=== PATIENT | male | born 1980 | race Two or more races ===

== ENCOUNTER 2025-04-16 14:32 | Inpatient (IN) | payer OTHER, SELFPAY ==
[2025-04-16] VITALS (7 sets, daily range): BP systolic 131–141; BP diastolic 64–76; BMI 39.9; BMI 38.8
[2025-04-16 11:56] LABS: INR 1.79; PT 21.0 Sec (11.4-14.6)
[2025-04-16 11:57] LABS: APTT 38.2 Sec (23.4-35.0)
[2025-04-16 12:02] LABS: Ammonia 59 umol/L (9-30)
[2025-04-16 12:03] LABS: ALT (SGPT) 77 U/L (0-50); AST (SGOT) 95 U/L (17-59); Albumin 2.7 g/dl (3.5-5.0); Alkaline Phosphatase 152 U/L (38-126); Blood Urea Nitrogen 14 mg/dl (9-20); Calcium 8.8 mg/dl (8.4-10.2); Carbon Dioxide 23 mmol/L (22-30); Chloride 114 mmol/L (98-107); Estimated Creatinine Clearance > 125 ml/min; Glucose 167 mg/dl (70-99); Potassium 4.2 mmol/L (3.5-5.1); Sodium 138 mmol/L (135-145); Total Protein 6.1 g/dl (6.3-8.2); eGFR > 60.00
[2025-04-16 12:15] LABS: Hematocrit 32.4 % (39.0-52.0); Hemoglobin 11.5 g/dL (13.0-18.0); Mean Corp Hgb Conc. 35.5 g/dL (33.0-37.0); Mean Corpuscular Volume 101.6 fL (80.0-94.0); Nucleated Red Blood Cells % 0 % (-); Platelet Count 65 10^3/uL (130-400); Red Cell Dist. Width 14.2 % (11.5-14.5)
--- NOTE | 2025-04-16 12:56 | ED.GENMED ---
History of Present Illness
General
Chief Complaint: Change in Mental Status
Source: patient and ambulance crew
Exam Limitations: none
Time Seen by Provider: 04/16/25 11:55
Nursing documentation reviewed up to this point in time: agreed with
History of Present Illness
History of Present Illness:
Note:
CHIEF COMPLAINT(S)
Sleepiness leading to family concerns and ambulance call.
HISTORY OF PRESENT ILLNESS
The patient is a 45-year-old male who was brought to the emergency department after his family called an ambulance due to sudden sleepiness observed over the past two to three days. The patient denies any pain but acknowledges that his family was
concerned about his lethargy which led to the emergency call. The patient was otherwise alert and oriented upon evaluation and able to communicate aptly with medical staff. Additionally, he reports no recent significant events that might have
contributed, suggesting an overall sense of well-being at the time of the assessment.
REVIEW OF SYSTEMS
- Neurological: Reports of sudden-onset sleepiness over the past two to three days. No other neurological complaints such as headache, dizziness, or loss of consciousness.
- General: Denies any acute pain; presents with alertness without distress.
PHYSICAL EXAM
General: Alert, no acute distress.
Skin: Warm, dry. jaundice,
Head: Normocephalic, atraumatic.
Neck: Supple, trachea midline.
Eye Ears, nose, mouth and throat: Oral mucosa moist. sclera icteric
Cardiovascular: Normal peripheral perfusion, No edema.
Respiratory: Respirations are non-labored, lungs clear bilaterally.
Gastrointestinal: Abdomen nondistended.
Back: Normal range of motion, Normal alignment.
Musculoskeletal: Normal range of motion, normal strength.
Neurological: Alert and oriented to person, place, time, and situation, no focal neurological deficit observed.
Psychiatric: Cooperative, appropriate mood & affect.
PLAN
- Blood tests to further evaluate underlying causes for sudden sleepiness.
- Monitor the patients condition and vital signs closely.
- Discuss findings and possible follow-up care with the patient and his family.
DIFFERENTIAL DIAGNOSIS
The Differential Diagnosis includes, in no particular order and is not limited to:
1. Sleep apnea
2. Depression-related fatigue
3. Hypothyroidism
4. Chronic fatigue syndrome
5. Medication side effects
6. Metabolic disorders such as diabetes
7. Neurological conditions like narcolepsy
8. Anemia
9. Sleep disorders such as insomnia
10. Acute or chronic infections
CARE-UPDATE
04/16/25 - 13:03
Patient exhibits elevated ammonia levels and INR at 1.79; plan includes administration of lactulose. Hospitalist admission for continued management is arranged. Patient shows no signs of trauma or focal neurological deficits, but reports significant
fatigue.
Disposition:
SUMMARY OF ENCOUNTER
The patient, a 45-year-old male, was admitted to the emergency department due to sudden-onset sleepiness over the past few days, which alarmed his family. Upon evaluation, the patient was alert and denied any pain. After reviewing the patients
elevated ammonia levels and INR, the decision was made to admit him to the hospital for further management. The presumed diagnosis is related to hepatic encephalopathy, likely linked to hepatitis B.
DISPOSITION
Admit to hospitalist service for continued management.
PLAN
- Administer lactulose for management of elevated ammonia levels.
- Admit for further evaluation and management of probable hepatic encephalopathy.
- Monitor his condition and complete a pending CT scan to rule out any other causes for the altered mental status.
INDEPENDENT REVIEW OF LABS AND INTERPRETATION OF TESTS
My independent review indicates elevated ammonia levels and an INR of 1.79, suggestive of hepatic dysfunction.
MEDICAL DECISION MAKING
-Complexity of Data Reviewed: Chronic conditions affecting care, including the patients diagnosis of hepatitis B and suspected hepatic encephalopathy. Differential diagnosis includes: sleep apnea, depression-related fatigue, hypothyroidism, chronic
fatigue syndrome, medication side effects, metabolic disorders such as diabetes, neurological conditions like narcolepsy, anemia, sleep disorders such as insomnia, and acute or chronic infections.
-Data:
Category 1
Lab tests reviewed revealed elevated ammonia levels and increased INR, indicating potential hepatic dysfunction.
Category 3
Discussion of management with the hospitalist, with plans for admission and further in-hospital management.
DIAGNOSIS
Presumed hepatic encephalopathy due to hepatitis B - ICD-10 Code B16.9
Phy Exam
Physical Exam
Physical Exam:
.
Course
Orders/Labs/Results
Orders:
Orders
04/16/25 11:38
Ammonia Urgent
Complete Blood Count/With Diff Urgent
Comprehensive Metabolic Panel Urgent
PT/INR [Prothrombin Time] Urgent
Is patient on Coumadin/Warfarin?: No
Comment: [email or web address]
PTT Urgent
04/16/25 12:55
Lactulose [Duphalac/Chronulac] 20 grams PO NOW STA
04/16/25 12:57
CT Head W/o Iv Contrast Urgent
Comment:
Reason For Exam: fatigue, confusion
Abnormal Lab Results
04/16/25
11:38
WBC 3.8 L 10^3/uL
(4.8-10.8)
RBC 3.19 L 10^6/uL
(4.70-6.10)
Hgb 11.5 L g/dL
(13.0-18.0)
Hct 32.4 L %
(39.0-52.0)
MCV 101.6 H fL
(80.0-94.0)
MCH 36.1 H pg
(27.0-31.0)
Plt Count 65 L 10^3/uL
(130-400)
MPV 11.0 H fL
(7.4-10.4)
PT 21.0 H Sec
(11.4-14.6)
APTT 38.2 H Sec
(23.4-35.0)
Chloride 114 H mmol/L
(98-107)
Glucose 167 H mg/dl
(70-99)
Total Bilirubin 7.5 H mg/dl
(0.2-1.3)
AST 95 H U/L
(17-59)
ALT 77 H U/L
(0-50)
Alkaline Phosphatase 152 H U/L
(38-126)
Ammonia 59 H umol/L
(9-30)
Total Protein 6.1 L g/dl
(6.3-8.2)
Albumin 2.7 L g/dl
(3.5-5.0)
04/16/25 11:38
04/16/25 11:38
Vital Signs
Initial and Last Documented VS:
Initial Vital Signs
BP
133/73
04/16/25 11:36
Last Documented Vital Signs
Temp Pulse Resp BP Pulse Ox
98.5 F 81 16 132/74 98
04/16/25 11:39 04/16/25 12:00 04/16/25 12:04 04/16/25 12:00 04/16/25 12:58
*Pulse Oximetry
SaO2: 98
Oxygen Mode of Delivery: Room air
Patient hypoxic: no
*Critical Care Note
Total Time (30-74mins, 75-104mins- exclusive of procedures): Not Applicable
ED Attending Note
-
Portions of this chart may have been created with voice recognition software.� Occasional wrong word or��sound alike� substitutions may have occurred due to the inherent limitations of voice recognition software.
Discharge Plan
Departure
Patient Disposition: Admit
Date of Disposition: 04/16/25
Time of Disposition: 12:58
Admit to: Telemetry
Presentation/result/management discussed w/ accepting MD/DO: Hospitalist
Condition: Fair
Discharge Problem:
Acute hepatic encephalopathy, Hepatitis B
Interventions
Interventions:
*Risk Screen - Suicide Last Done: 04/16/25 11:44
*General Assessment Last Done: 04/16/25 11:39
*Neglect/Abuse Screening Last Done: 04/16/25 11:44
*ED- Fall Risk Assessment Last Done: 04/16/25 11:39
*ED COVID-19 Vaccine History Last Done: 04/16/25 11:39
ED- Neurological Assessment Last Done: 04/16/25 11:44
ED Swallowing Screen Last Done: 04/16/25 11:46
Discharge Date and Time
Print Language: PUERTO RICAN
--- NOTE | 2025-04-16 13:06 | HPS.HSE ---
Family Physician
-
Family Physician:
Chief Complaint
-
dizzy and confusion
History of Present Illness
45-year-old with past medical history for hepatitis B presented to us with dizziness, fatigue and confused since this morning. As per son, he seemed very confused and was sleeping more than usual. Patient denied any headache. He complained of
dizzy. Patient denied any fever, chills, cough, congestion. Patient denied any chest pain or short of breath. Patient denied abdominal pain, nausea, vomiting or diarrhea. Patient denied dysuria materia. Patient stated chronic lower extremities
edema.
Admitting with hepatic encephalopathy. CT-Pending. Patient received lactulose in the ER.admitting for further managment.
Medical History
Past Medical History
Past Medical History: Reports Other
Additional Past Medical History:
Hepatitis B
Past Surgical History: Reports Other
Additional Past Surgical History:
Cholecystectomy
Social History
Tobacco: Non-smoker
Alcohol: None
Drug: None
Personal:
Living: With Family
Family History
Family History: Not pertinent
Allergies / Home Medications
Allergies reflects when Allergies were last updated in [facility].
Home Medications with original date entered in [facility]
Allergy/Medication List:
Allergies
Allergy/AdvReac Type Severity Reaction Status Date / Time
No Known Allergies Allergy Unverified 04/16/25 13:03
Review of Systems
-
Constitutional: Reports Fatigue
EENT: Reports No Symptoms
Respiratory: Reports No Symptoms
Cardiac: Reports No Symptoms
Abdomen/GI: Reports No Symptoms
: Reports No Symptoms
Musculoskeletal: Reports No Symptoms
Skin: Reports No Symptoms
Neurological: Reports Dizzy and Weakness
Endocrine: Reports No Symptoms
Hematologic/Lymphatic: Reports No Symptoms
Psych: Reports No Symptoms
Physical Exam
Vital Signs
Vital Signs
Temp Pulse Resp BP Pulse Ox
98.5 F 81 16 132/74 98
04/16/25 11:39 04/16/25 12:00 04/16/25 12:04 04/16/25 12:00 04/16/25 12:58
Physical Exam
General: Well Developed, Well Nourished and No Apparent Distress
HEENT: NormoCephalic, Moist mucous membranes and Atraumatic
Respiratory: Clear
Cardiac: S1/S2 and Regular Rhythm; No Murmur or Rub
GI: Soft, Non Tender, Non Distended and Normal Bowel Sounds; No Organomegaly
Rectal: Deferred by Provider
Musculoskeletal: No Clubbing, No Cyanosis and Other (Bilateral lower extremities edema)
Skin: No Rash
Neuro: Nonfocal/grossly intact
Laboratory Results
-
04/16/25 11:38
04/16/25 11:38
Laboratory Results
PT 21.0 Sec (11.4-14.6) H 04/16/25 11:38
INR 1.79 04/16/25 11:38
APTT 38.2 Sec (23.4-35.0) H 04/16/25 11:38
Total Bilirubin 7.5 mg/dl (0.2-1.3) H 04/16/25 11:38
AST 95 U/L (17-59) H 04/16/25 11:38
ALT 77 U/L (0-50) H 04/16/25 11:38
Alkaline Phosphatase 152 U/L (38-126) H 04/16/25 11:38
Data Reviewed
-
Lab Data: Labs Reviewed by me
Impression/Plan
-
#hepatic encephalopathy likely from hepatitis B cirrhosis
-AST 95.ALT 77, ammonia 59
-Patient received a dose of lactulose in the ER
-Lactulose continued
-Lasix continued
-Patient is on Vemlidy as outpatient.
-duplex for LE edema
-CT head pending
-follows nurse first assist as outpatient
#pancytopenia likely from liver disease
-wbc 3.8,hgb 11.5,platelets 65
-ctm
# GERD
- Pantoprazole, famotidine continued
#DVT Prophylaxis
-Lovenox
#CODE status
-full code
--- NOTE | 2025-04-16 13:45 | W.PN.UPDATE ---
Update Note
Progress Note Update
This is an addendum to H&P written by BLOOD DONOR RECRUITER Connie Frank
I saw and examined the patient.
The BLOOD DONOR RECRUITER's note was reviewed and I agree with the note.
Comment:
Mr. Cristhian Beach is a 45 yo man with hx Hepatitis B cirrhosis who presents to the ER with increasing feeling of fatigue, some confusion.
Triage VS: T 98.5, P 81, RR 16, BP 132/74, SpO2 98%
On exam patient is awake, alert. RN helped translate. He has chronic right eye deviation (hx surgery many ears ago). mild asterixic, no focal deficits, no abdominal pain.
LABS: WBC 3.8, Hg 11.5, PLT 65, INR 1.79, Na 138, K+ 4.2, Cl 114, BUN 14, Cr 0.7, Glucose 167, T. Bili 7.5, AST 95, ALT 77, Alk Phos 152
Ammonia level 59
Hepatic Encephalopathy, Mild
-admit to med/surg
-order Lactulose TID, give extra if no BM today
Hepatitis B Cirrhosis
Transaminitis
-patient follows with [facility], will try to obtain records
-BOXCAR WEIGHER Vemlidy
-BOXCAR WEIGHER Propranolol
-BOXCAR WEIGHER Lasix
-will obtain US here, tomorrow AM
LE swelling
-F/U US
-BOXCAR WEIGHER Lasix
GERD - BOXCAR WEIGHER Protonix
Remainder of plan per BLOOD DONOR RECRUITER note
[2025-04-16] MEDS: DUPHALAC/CHRONULAC 20 GRAMS PO ×2 (15:19→20:55)
--- NOTE | 2025-04-16 18:05 | PTCARENOTE ---
received pt from ed. pt ambulated from stretcher to bed x1 assist. Pt VSS and AAOx3. pt oriented to unit. call espitia placed within reach and bed alarm is on. Pt was then transfered from [facility]2 to 420 so that his could stay and help him. pt is
uzbekian speaking. care is ongoing.
[2025-04-17] MEDS: DUPHALAC/CHRONULAC 20 GRAMS PO ×4 (01:00→20:37)
--- NOTE | 2025-04-17 01:30 | PTCARENOTE ---
Nursing to place order from change of shift stating that nursing should TT provider if pt has not had a BM by 1900 so an extra dose of lactulose can be ordered. Pt arrived to unit at 1800, this RN did not assume care of pt until 184. Pt provided
evening dose of lactulose at 2054, with a large loose BM at 2144. Another dose of lactulose given at 0100. Pt continuing to void loose brown stools s/p lactulose admin. DANY Hawley notified, will continue to follow with current bowel regimen, no
further orders.
[2025-04-17 03:30] VITALS: BP 137/78
--- NOTE | 2025-04-17 04:00 | PTCARENOTE ---
Pt making multiple trips to the bathroom to void large amounts of loose brown stools s/p lactulose admin. Pt is also reporting 10/10 headache and vomiting; he attributes the vomiting to the pain. Nothing PRN ordered. DEPORTATION OFFICER Marleen notified, 1x orders of
IV Toradol and IV Zofran ordered and provided to pt. Pt now sleeping.
[2025-04-17] MEDS: TORADOL 15 MG IV (04:27)
[2025-04-17] MEDS: ZOFRAN 4 MG IV (04:27)
[2025-04-17 05:46] VITALS: BMI 38.7
[2025-04-17 07:00] VITALS: BP 152/71
--- NOTE | 2025-04-17 07:07 | W.PN.HOSP.TC ---
Today's Communication/Plan
-
cont lactulose TID
resume home Vemlidy (POM) and Xifaxan
monitor LFTs
GI eval
Assessment / Plan
Assessment / Plan
Physical Exam
General: No acute distress, appears relatively comfortable at this time
HEENT: NormoCephalic, Moist mucous membranes and Atraumatic Scleral Icterus
Respiratory: Clear to auscultation b/l
Cardiac: S1/S2 and Regular Rhythm; No Murmur or Rub
GI: Soft, Non Tender, Non Distended and Normal Bowel Sounds; No Organomegaly
Musculoskeletal: No Clubbing, No Cyanosis, Bilateral lower extremities edema +1
Skin: No Rash, Jaundice present
Neuro: AOx3 conversant coherent, no asterixis
Psych: Calm
45M Chadian speaking semi-fluent Brazilian hx Hep B Cirrhosis on Vemlidy here for hepatic Encephalopathy
#hepatic encephalopathy
#Hx hepatitis B cirrhosis
#LE edema
#Severe bilirubinemia
-Lactulose continued TID (on daily at home)
-home Lasix continued
-home Vemlidy resumed Pt's own med
-Home Xifaxan resumed 550 mg BID
-duplex LE appreciated no DVT
-CT head appreciated no acute abn's
-Abd US appreciated mild splenomegaly, otherwise no signifcant acute abn's
-follows band saw marker as outpatient
-GI eval requested
#pancytopenia likely from liver disease
-ctm
# GERD
- Pantoprazole, famotidine continued
#DVT Prophylaxis
-Lovenox
#CODE status
-full code
Via international language line Chadian, discussed with patient and patient's Janeth
I spent a total of 50 minutes with the patient or on the floor. More than 50% of this time involved counseling and coordination of care.
Anticipated Discharge: 24 - 48 hours
Subjective/Interval History
-
Date of Service: April 17, 2025
Interviewed via international language line production inspector Chadian. Reports general malaise fatigue lethargy. Denies significant pain. AOx3 conversant coherent. Janeth present during evaluation.
Objective Data
-
Labs:
Laboratory Results
04/17/25
06:00
WBC Pending
Hgb Pending
Hct Pending
Plt Count Pending
Sodium Pending
Potassium Pending
Chloride Pending
Carbon Dioxide Pending
BUN Pending
Creatinine Pending
Glucose Pending
Calcium Pending
Total Bilirubin Pending
AST Pending
ALT Pending
Alkaline Phosphatase Pending
Vital Signs:
Vital Signs
Temp Pulse Resp BP Pulse Ox
98.7 F 66 16 137/78 99
04/17/25 03:30 04/17/25 03:30 04/17/25 03:30 04/17/25 03:30 04/17/25 03:30
I&O
04/16/25 04/17/25 04/18/25
06:59 06:59 06:59
Intake Total 240 / 240
Balance 240 / 240
[2025-04-17 08:17] LABS: Hematocrit 28.2 % (39.0-52.0); Hemoglobin 10.1 g/dL (13.0-18.0); Mean Corp Hgb Conc. 35.8 g/dL (33.0-37.0); Mean Corpuscular Volume 101.8 fL (80.0-94.0); Platelet Count 51 10^3/uL (130-400); Red Cell Dist. Width 13.8 % (11.5-14.5)
[2025-04-17 08:27] LABS: Ammonia 28 umol/L (9-30)
[2025-04-17] MEDS: INDERAL LA 60 MG PO (09:18)
[2025-04-17 09:19] LABS: ALT (SGPT) 66 U/L (0-50); AST (SGOT) 77 U/L (17-59); Albumin 2.3 g/dl (3.5-5.0); Alkaline Phosphatase 93 U/L (38-126); Blood Urea Nitrogen 16 mg/dl (9-20); Calcium 8.0 mg/dl (8.4-10.2); Carbon Dioxide 22 mmol/L (22-30); Chloride 116 mmol/L (98-107); Estimated Creatinine Clearance > 125 ml/min; Glucose 133 mg/dl (70-99); Potassium 3.9 mmol/L (3.5-5.1); Sodium 139 mmol/L (135-145); Total Protein 5.3 g/dl (6.3-8.2); eGFR > 60.00
[2025-04-17] MEDS: LASIX 20 MG PO (09:19)
[2025-04-17] MEDS: PROTONIX 40 MG PO (09:19)
[2025-04-17] MEDS: NON-FORMULARY ITEM 25 MG PO (14:18)
[2025-04-17 15:00] VITALS: BP 126/81
--- NOTE | 2025-04-17 16:21 | CM ---
Patient sleeping, seen bedside w/ spouse and son. Initial assessment completed. Son translated for spouse. Patient is a 45-year-old with past medical history for hepatitis B presented to us with dizziness, fatigue and confused.
Patient resides w/ spouse and son in a 2STH, 2 steps to enter from the outside. Patient is independent in all areas, no equipment required. No therapy hx reported.
Address, point of contact and insurance verified
PCP: Rudy Garrett
Pharmacy: [facility]
Plan: Home, no needs anticipated
[2025-04-17] MEDS: XIFAXAN 550 MG PO (20:37)
[2025-04-17 22:52] VITALS: BP 154/89
[2025-04-18 06:00] VITALS: BMI 38.6
[2025-04-18 07:00] VITALS: BP 134/76
[2025-04-18 08:00] LABS: INR 1.90; PT 22.0 Sec (11.4-14.6)
[2025-04-18 08:11] LABS: Hematocrit 29.9 % (39.0-52.0); Hemoglobin 10.7 g/dL (13.0-18.0); Mean Corp Hgb Conc. 35.8 g/dL (33.0-37.0); Mean Corpuscular Volume 101.7 fL (80.0-94.0); Platelet Count 50 10^3/uL (130-400); Red Cell Dist. Width 13.3 % (11.5-14.5)
[2025-04-18 08:22] LABS: ALT (SGPT) 68 U/L (0-50); AST (SGOT) 84 U/L (17-59); Albumin 2.3 g/dl (3.5-5.0); Alkaline Phosphatase 92 U/L (38-126); Blood Urea Nitrogen 16 mg/dl (9-20); Calcium 7.6 mg/dl (8.4-10.2); Carbon Dioxide 24 mmol/L (22-30); Chloride 112 mmol/L (98-107); Estimated Creatinine Clearance > 125 ml/min; Glucose 136 mg/dl (70-99); Magnesium 1.7 mg/dl (1.6-2.3); Potassium 4.0 mmol/L (3.5-5.1); Sodium 137 mmol/L (135-145); Total Protein 5.3 g/dl (6.3-8.2); eGFR > 60.00
[2025-04-18] MEDS: DUPHALAC/CHRONULAC 20 GRAMS PO ×3 (08:39→20:48)
[2025-04-18] MEDS: PROTONIX 40 MG PO (08:41)
[2025-04-18] MEDS: XIFAXAN 550 MG PO ×2 (08:41→20:46)
[2025-04-18] MEDS: LASIX 20 MG PO (08:42)
[2025-04-18] MEDS: INDERAL LA PO (08:43)
[2025-04-18] MEDS: NON-FORMULARY ITEM 25 MG PO (08:43)
--- NOTE | 2025-04-18 09:23 | W.PN.HOSP.TC ---
Today's Communication/Plan
-
see A/P
Assessment / Plan
Assessment / Plan
45M Chinese speaking semi-fluent Japanese hx Hep B Cirrhosis on Vemlidy here for hepatic Encephalopathy
A/P:
# hepatic encephalopathy
# Hx hepatitis B cirrhosis
# LE edema
# Severe bilirubinemia
Lactulose continued TID (on daily at home)
home Lasix continued, extra dose 20 mg IV today as pt states edema not much improved
home Vemlidy resumed Pt's own med
Home Xifaxan resumed 550 mg BID
duplex LE appreciated no DVT
CT head appreciated no acute abn's
Abd US appreciated mild splenomegaly, otherwise no significant acute abn's
follows lead massage therapist as outpatient
GI consulted
# pancytopenia likely from liver disease
Monitor
# GERD
Pantoprazole, famotidine continued
DVT Prophylaxis: use SCD in setting of thrombocytopenia at 50k
CODE status-full code
DW pt with at bedside
total time spent 51 min
Anticipated Discharge: Within 24 hours
Subjective/Interval History
-
Date of Service: April 18, 2025
Objective Data
-
Labs:
Laboratory Results
04/18/25
07:32
WBC 2.8 L
Hgb 10.7 L
Hct 29.9 L
Plt Count 50 L
PT 22.0 H
INR 1.90
Sodium 137
Potassium 4.0
Chloride 112 H
Carbon Dioxide 24
BUN 16
Creatinine 0.6 L
Glucose 136 H
Calcium 7.6 L
Total Bilirubin 7.3 H
AST 84 H
ALT 68 H
Alkaline Phosphatase 92
Vital Signs:
Vital Signs
Temp Pulse Resp BP Pulse Ox
36.5 C 56 18 132/78 100
04/17/25 22:52 04/18/25 08:43 04/17/25 22:52 04/18/25 08:43 04/17/25 22:52
I&O
04/17/25 04/18/25 04/19/25
06:59 06:59 06:59
Intake Total 240 / 240 1919
Balance 240 / 240 1919
Review of Systems
-
History Source: Patient
All other systems: Reviewed and negative
Physical Exam
-
General: Well Developed, Well Nourished, No Apparent Distress, Comfortable and Conversant; Negative Respiratory Distress
HEENT: Normocephalic, Atraumatic, Nose Appears Normal and Ears Appear Normal; Negative Oxygen
Respiratory: Clear to Auscultation and Non Labored Respirations; Negative Accessory Resp Muscle Use
Cardiac: Regular Rhythm and S1/S2
GI: Soft, Nontender, Nondistended and Normal Bowel Sounds
Skin: Warm, Dry and Jaundice
Neuro: Awake, Alert, Oriented and AO x 3
Psych: Calm and Intact Judgement/Insight
Data Reviewed
-
Ultrasound: Report Reviewed by me
Labs: Labs Reviewed by me
[2025-04-18] MEDS: LASIX 20 MG IV (10:23)
--- NOTE | 2025-04-18 13:57 | CON.GI ---
Consultation
-
Date/Time Consultation Requested: 04/18/2025
Date/Time Consultation Performed: 10/19/2024
Performing Provider: Michele Elizalde
Reason for Consultation: HE
Medical History
Chief Complaint / HPI
Chief Complaint: HE
History of Present Illness:
Patient is a 45-year-old male with H/O HBV cirrhosis decompensated by hepatic encephalopathy who p/w confusion and altered mental status. He tells me that he did not take his lactulose for past few days and found himself confused. 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 His confusion worsened and became drowsy. He was given lactulose in the ED which improved his encephalopathy. He is conversant and answers
questions appropriately today with me. He states Dr. Rudy Felix for his liver disease. His home meds include diuretics, lactulose, beta-blockers, rifaximin and tenofovir for his HBV. He does not drink alcohol or smoke cigarettes.
Past Medical History
Past Medical History: GERD and Other (HBV)
Past Surgical History: Cholecystectomy
Social History
Tobacco: Non-Smoker
Alcohol: None
Family History
Family History: Reviewed & Not Pertinent
Allergies / Home Medications
Allergy/AdvReac Type Severity Reaction Status Date / Time
No Known Allergies Allergy Unverified 04/16/25 13:03
�Medication �Instructions �Recorded
famotidine 40 mg tablet 40 mg PO DAILY Gastrointestinal 04/16/25
Issue
furosemide 20 mg tablet 20 mg PO DAILY Fluid 04/16/25
Retention/Swelling
lactulose 10 gram/15 mL oral 30 ml PO DAILY Constipation 04/16/25
solution
pantoprazole 40 mg tablet,delayed 40 mg PO DAILY Gastrointestinal 04/16/25
release (Protonix) Issue
propranolol 60 mg capsule,24 60 mg PO DAILY Blood Pressure 04/16/25
hr,extended release
tenofovir alafenamide 25 mg tablet 25 mg PO DAILY HEP B 04/16/25
(Vemlidy)
rifaximin 550 mg tablet (Xifaxan) 550 mg PO BID 04/17/25
Review of Systems
Vital Signs
Temp Pulse Resp BP Pulse Ox
97.6 F 56 18 132/78 99
04/18/25 07:00 04/18/25 08:43 04/18/25 07:00 04/18/25 08:43 04/18/25 12:35
Physical Exam
Exam
General: Well Developed and Well Nourished
HEENT: Normocephalic, Anicteric and Other (scleral icterus)
Respiratory: Clear
Cardiac: S1/S2 and Regular Rhythm
GI: Soft, Non Tender, Non Distended and Normal Bowel Sounds
Musculoskeletal: Edema
Results
WBC 2.8 10^3/uL (4.8-10.8) L 04/18/25 07:32
Hgb 10.7 g/dL (13.0-18.0) L 04/18/25 07:32
Hct 29.9 % (39.0-52.0) L 04/18/25 07:32
MCV 101.7 fL (80.0-94.0) H 04/18/25 07:32
Plt Count 50 10^3/uL (130-400) L 04/18/25 07:32
Absolute Neuts (auto) 2.1 10^3/uL (1.4-6.5) 04/16/25 11:38
PT 22.0 Sec (11.4-14.6) H 04/18/25 07:32
INR 1.90 04/18/25 07:32
APTT 38.2 Sec (23.4-35.0) H 04/16/25 11:38
Sodium 137 mmol/L (135-145) 04/18/25 07:32
Potassium 4.0 mmol/L (3.5-5.1) 04/18/25 07:32
Chloride 112 mmol/L (98-107) H 04/18/25 07:32
Carbon Dioxide 24 mmol/L (22-30) 04/18/25 07:32
BUN 16 mg/dl (9-20) 04/18/25 07:32
Creatinine 0.6 mg/dL (0.7-1.3) L 04/18/25 07:32
Calcium 7.6 mg/dl (8.4-10.2) L 04/18/25 07:32
Total Bilirubin 7.3 mg/dl (0.2-1.3) H 04/18/25 07:32
AST 84 U/L (17-59) H 04/18/25 07:32
ALT 68 U/L (0-50) H 04/18/25 07:32
Alkaline Phosphatase 92 U/L (38-126) 04/18/25 07:32
Diagnostic Image Results:
Prior GI Procedures:
EGD:
Colonoscopy:
Assessment / Plan
-
45-year-old male with HBV decompensated cirrhosis presenting with hepatic encephalopathy.
Impression / Rec:
1. HE - he presented with confusion and somnolence / lethargy. He was promptly diagnosed with hepatic encephalopathy and was treated with lactulose with good response. His mental status is back to baseline, and there is no asterixis noted during
exam. 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 I informed him that he should not work as a production truck driver
given his risk of hepatic encephalopathy. His bilirubin on admission was 9 improved to 7.5 today. His INR was 1.8 on admission and 1.9 today. I reviewed his most recent blood work from his outside GI. Bilirubin on 03/2025 was 5.5 with alk phos of
130, and AST 104/ALT 79. Bilirubin on 12/2024 was 5 with alk phos of 143, and AST 159/ALT 114. INR was 1.5. Overall his MELD is 21. Unknown if he has undergone consideration for possible liver transplant workup. He does not drink alcohol or
smoke cigarettes. Continue with lactulose 3 times daily and rifaximin. He probably should be on Aldactone in addition to his Lasix. He can follow-up with his dehydrogenation operator head upon discharge.
Total Time Spent with Patient (in minutes): 55
-
-
Thank you for consultation and allowing me to participate in the patient's care. Please call the compliance professional GI physician during the after hours with any questions or concerns.
[2025-04-18 15:00] VITALS: BP 122/64
[2025-04-18 23:22] VITALS: BP 129/67
[2025-04-19 00:44] VITALS: BP 125/64
[2025-04-19 06:00] VITALS: BMI 38.4
[2025-04-19 06:54] LABS: Ammonia 31 umol/L (9-30); INR 1.71; PT 20.3 Sec (11.4-14.6)
[2025-04-19 06:59] LABS: ALT (SGPT) 74 U/L (0-50); AST (SGOT) 96 U/L (17-59); Albumin 2.4 g/dl (3.5-5.0); Alkaline Phosphatase 102 U/L (38-126); Blood Urea Nitrogen 11 mg/dl (9-20); Calcium 7.5 mg/dl (8.4-10.2); Carbon Dioxide 30 mmol/L (22-30); Chloride 107 mmol/L (98-107); Estimated Creatinine Clearance > 125 ml/min; Glucose 139 mg/dl (70-99); Magnesium 1.7 mg/dl (1.6-2.3); Potassium 3.7 mmol/L (3.5-5.1); Sodium 137 mmol/L (135-145); Total Protein 5.6 g/dl (6.3-8.2); eGFR > 60.00
[2025-04-19 07:00] VITALS: BP 128/72
[2025-04-19 07:16] LABS: Hematocrit 32.1 % (39.0-52.0); Hemoglobin 11.5 g/dL (13.0-18.0); Mean Corp Hgb Conc. 35.8 g/dL (33.0-37.0); Mean Corpuscular Volume 101.6 fL (80.0-94.0); Nucleated Red Blood Cells % 0 % (-); Platelet Count 68 10^3/uL (130-400); Red Cell Dist. Width 13.4 % (11.5-14.5)
[2025-04-19] MEDS: DUPHALAC/CHRONULAC 20 GRAMS PO (07:55)
[2025-04-19] MEDS: INDERAL LA PO ×2 (07:56→08:00)
[2025-04-19] MEDS: LASIX 20 MG PO (07:56)
[2025-04-19] MEDS: PROTONIX 40 MG PO (07:57)
[2025-04-19] MEDS: XIFAXAN 550 MG PO (07:57)
[2025-04-19] MEDS: NON-FORMULARY ITEM 25 MG PO (07:57)
--- NOTE | 2025-04-19 09:22 | W.PN.HOSP.TC ---
Addendum entered and electronically signed by Mary Gilbert MD 04/19/25 12:44:
DC time 40 min
Original Note:
Today's Communication/Plan
-
extra IV Lasix today before discharge
discharge planning
Assessment / Plan
Assessment / Plan
45M Romanian speaking semi-fluent Ukrainian hx Hep B Cirrhosis on Vemlidy here for hepatic Encephalopathy
A/P:
# hepatic encephalopathy
# Hx hepatitis B cirrhosis
# LE edema
# Severe bilirubinemia
Lactulose continued TID (on daily at home)
home Lasix continued, s/p extra dose 20 mg IV and another today 04/19 before discharge
home Vemlidy resumed Pt's own med
Home Xifaxan resumed 550 mg BID
Added low dose Aldactone 12.5 daily, further dose adjustment defer to outpt GI
duplex LE appreciated no DVT
CT head appreciated no acute abn's
Abd US appreciated mild splenomegaly, otherwise no significant acute abn's
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
appreciate GI input
# pancytopenia likely from liver disease
Monitor
# GERD
Pantoprazole, famotidine continued
DVT Prophylaxis: use SCD in setting of thrombocytopenia at 50k
CODE status-full code
DW GI
DW pt and at bedside
Anticipated Discharge: Today
Subjective/Interval History
-
Date of Service: April 19, 2025
Objective Data
-
Labs:
Laboratory Results
04/19/25
06:27
WBC 4.1 L
Hgb 11.5 L
Hct 32.1 L
Plt Count 68 L D
PT 20.3 H
INR 1.71
Sodium 137
Potassium 3.7
Chloride 107
Carbon Dioxide 30
BUN 11
Creatinine 0.6 L
Glucose 139 H
Calcium 7.5 L
Total Bilirubin 6.4 H
AST 96 H
ALT 74 H
Alkaline Phosphatase 102
Vital Signs:
Vital Signs
Temp Pulse Resp BP Pulse Ox
36.5 C 54 18 128/72 99
04/19/25 07:00 04/19/25 08:00 04/19/25 07:00 04/19/25 07:00 04/19/25 07:00
I&O
04/18/25 04/19/25 04/20/25
06:59 06:59 06:59
Intake Total 1919 960 / 960
Balance 1919 960 / 960
Review of Systems
-
History Source: Patient
All other systems: Reviewed and negative
Physical Exam
-
General: Well Developed, Well Nourished, No Apparent Distress, Comfortable and Conversant; Negative Respiratory Distress
HEENT: Normocephalic, Atraumatic, Nose Appears Normal and Ears Appear Normal; Negative Oxygen
Respiratory: Clear to Auscultation and Non Labored Respirations; Negative Accessory Resp Muscle Use
Cardiac: Regular Rhythm and S1/S2
GI: Soft, Nontender, Nondistended and Normal Bowel Sounds
Skin: Warm, Dry and Jaundice
Neuro: Awake, Alert, Oriented and AO x 3
Psych: Calm and Intact Judgement/Insight
Data Reviewed
-
Ultrasound: Report Reviewed by me
Labs: Labs Reviewed by me
[2025-04-19] MEDS: ALDACTONE 12.5 MG PO (09:45)
[2025-04-19] MEDS: LASIX 20 MG IV (09:45)
--- NOTE | 2025-04-19 10:12 | CM ---
CM reviewed chart, patient seen bedside with , for discharge today. Patient denies needs, will provide transport home. CM will continue to follow for all discharge planning needs.
Plan; home no needs.
--- NOTE | 2025-04-19 11:33 | W.DCSUMMARY ---
Discharge Summary
Discharge Data
Date of Admission: 04/16/25
Date of Discharge: 04/19/25
Total time spent discharging patient (in min): 40
-
Pending Results: No
Hospital Course
Principal Diagnosis:
Hepatic encephalopathy due to decompensated liver failure from hepatitis B cirrhosis.
Chronic Diagnoses:�
Hepatitis B cirrhosis
Pancytopenia due to liver disease
GERD on pantoprazole and famotidine
Consultations:�
Gastroenterology
Procedures:�
None
Clinical course:�
This is a 45-year-old Norwegian speaking semi-fluent Beninese male, with past medical history as stated above, who presented with confusion and increased lethargy.
Problem 1:
Hepatic encephalopathy due to decompensated liver failure from hepatitis B cirrhosis.
His prior to admission lactulose was increased from daily to 3 times daily, and he has been informed to continue the 3 times daily dosage frequency going forward.
He received as needed IV Lasix for his pedal edema while in the hospital, and his prior to admission Lasix was increased from 20 to 40 mg.
Low-dose Aldactone 12.5 mg daily was added this admission which he can continue going forward. Further dose adjustment of Aldactone per his outpatient GI doctor.
He was continued with his prior to admission Vemlidy and Xifaxan.
He has been informed to follow-up with director of business systems outpatient.
As for the rest of his medical problems, they were stable during his hospital stay.
Discharge Plan
-
Patient Disposition: Home (Routine Discharge)
Discharge Diagnosis/Procedures: hepatic encephalopathy;
hepatitis B cirrhosis;
pancytopenia likely from liver disease
Condition: Fair
Diet: As tolerated, Low Fat, Low Cholesterol and Restrict fluids to 48 oz
Activity: As tolerated
Driving Restrictions: As prior to admission
Blood Work: CBC and CMOP within 1 week, result to PCP
Referrals:
UNKNOWN - PT DOES,NOT KNOW [Family Provider] - in less than 1 week
Additional Discharge Medication Instructions: Continue lactulose three times a day (aim bowel movement twice a day).
Increased Lasix to 40 mg daily.
Added low dose Aldactone 12.5 mg daily (further adjustment per your GI doctor)
Prescriptions:
New
spironolactone 25 mg Tablet
12.5 mg PO DAILY Qty: 30 0RF
(DME) CBC with differential
See Rx Instructions .ROUTE .MEDSUPPLY Qty: 1 0RF
Rx Instructions:
within 1 week (04/20 to 04/18), result to PCP
(DME) CMP
See Rx Instructions .ROUTE .MEDSUPPLY Qty: 1 0RF
Rx Instructions:
within 1 week (04/20 to 04/18), result to PCP/GI
Continued
famotidine 40 mg Tablet
40 mg PO DAILY
propranolol 60 mg Capsule,Extended Release 24 Hr
60 mg PO DAILY
pantoprazole [Protonix] 40 mg Tablet,Delayed Release (Dr/Ec)
40 mg PO DAILY
Vemlidy 25 mg Tablet
25 mg PO DAILY
Xifaxan 550 mg Tablet
550 mg PO BID
Changed
furosemide 20 mg Tablet
40 mg PO DAILY Qty: 60 0RF
lactulose 10 gram/15 mL Solution
30 ml PO TID Qty: 1200 0RF
Discharge Orders:
Discharge Patient (As Directed); Ordered 04/19/25
Ordered By: Mary Gilbert
Discharge Date and Time
Discharge Date/Time: 04/19/25 10:47
Print Language: URDU
== END 2025-04-19 10:47 | disposition home or self-care (01) | DRG 442 ==
LOC: 4 WEST ACU 14:32
PROVIDERS: Internal Medicine; Registered Nurse; ADMITTING PHYSICIAN Student in an Organized Health Care Education/Training Program; ATTENDING PHYSICIAN Internal Medicine; CONSULT PHYSICIAN Internal Medicine Gastroenterology; EMERGENCY PHYSICIAN Emergency Medicine
DX: K72.00 Acute and subacute hepatic failure without coma (principal); B19.10 Unspecified viral hepatitis B without hepatic coma; D61.818 Other pancytopenia; K74.60 Unspecified cirrhosis of liver; K76.82 Hepatic encephalopathy; K21.9 Gastro-esophageal reflux disease without esophagitis; H51.8 Other specified disorders of binocular movement; K59.00 Constipation, unspecified; Z91.148 Patient's other noncompliance with medication regimen for other reason; Z79.899 Other long term (current) drug therapy
CPT/HCPCS: 70450; 76700; 80053; 82140; 82248; 83735; 84100; 85025; 85027; 85610; 85730; 93970; 99284